=== PATIENT | male | born 1975 | race Caucasian/White ===

== ENCOUNTER 2016-12-21 02:28 | Emergency (ER) | payer BC, OTHER ==
[~2016-12-21] VITALS: Ht 182.9 cm; Wt 109.6 kg
[2016-12-21 02:35] VITALS: TEMP 35.8; Ht 182.9 cm; Wt 109.6 kg
--- NOTE | 2016-12-21 02:40 | EMERGENCY ROOM VISIT NOTE ---
History Report prepared by Zuleykaibjong: Riki Salazar Under the Supervision of: Dr. Areli Patterson D.O. First contact with patient: 02:31 Chief Complaint: ALCOHOL OVERDOSE Stated Complaint: ALCOHOL OVERDOSE History of Present Illness The patient is a 41 year old male who presents to the Emergency Room with complaints of an acute alcohol overdose that started prior to arrival. The patient came to the ED form the [facility], where he was attending a conference. 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 The patient was falling asleep at the bar at the [facility]. He was supposed to have sober friends come for him but his friends turned out to not be sober. The patient was covered in vomit upon arrival to the ED. He denies abdominal pain. The patient notes that his and daughter were in an argument today which pushed him over the edge. The patient denies any health problems. He denies other drug use. Complete history is limited secondary to alcohol intoxication. Source of History: patient, EMS Onset: [employer] Position: other (global) Quality: other (alcohol overdose) Timing: other (acute) Associated Symptoms: + vomiting, No abdominal pain Review of Systems ROS is limited secondary to alcohol intoxication. Past Medical & Surgical Medical Problems: (1) No known health problems Family History Patient reports no known family medical history. Social History Alcohol Use: occasionally Marital Status: Housing Status: lives with family Occupation Status: employed Current/Historical Medications No Active Prescriptions or Reported Meds Allergies Coded Allergies: No Known Allergies (Unverified , 12/21/16) Physical Exam Vital Signs Date Time Temp Pulse Resp B/P Pulse Ox O2 Delivery O2 Flow Rate FiO2 12/21/16 06:05 46 16 119/67 97 12/21/16 04:09 60 18 113/66 92 Room Air 12/21/16 02:36 63 12/21/16 02:35 35.8 45 18 134/89 96 Room Air Physical Exam HEENT: Head - normocephalic and atraumatic Pupils are equal, round, and reactive to light. Extraocular eye muscles are intact, and sclera are anicteric. Nose - moist nasal mucosa without discharge. Mouth - moist buccal mucosa. Oropharynx is nonerythematous and there is no tonsillar exudate or edema noted. Neck: Supple; no JVD, nuchal rigidity, cervical lymphadenopathy, or auscultated bruits. Heart: Regular rate and rhythm. There is a normal S1 and S2 with no murmurs, clicks, or gallops appreciated. Lungs: Clear to auscultation bilaterally with no wheezes, rales, or rhonchi. Abdomen: Soft, completely nontender, nondistended, with good bowel sounds. There are no palpable pulsatile masses or hepatosplenomegaly. There is no guarding, rigidity, or rebound noted. Extremities: No evidence of cyanosis, clubbing, or edema. There are easily palpable peripheral pulses. Skin: warm and dry with good turgor and no rashes. Medical Decision & Procedures Laboratory Results 12/21/16 02:39 Test 12/21/16 02:39 Anion Gap 11.0 mmol/L (3-11) Est Creatinine Clear Calc Drug Dose 126.9 ml/min Estimated GFR () 110.5 Estimated GFR (Non- 95.4 BUN/Creatinine Ratio 8.8 (10-20) Calcium Level 8.1 mg/dl (8.5-10.1) Ethyl Alcohol mg/dL 208.0 mg/dl (0-3) Laboratory results per my review. ED Course 0232: Past medical records reviewed. The patient was evaluated in room B11b. A complete history and physical exam was performed. Laboratory studies were drawn as above. The patient was placed in the prone position to avoid aspiration. He was observing the manager monitoring and pulse oximeter. 0405: The patient is sleeping at this time. He had vomited once. 0600: Discussed the discharge instructions with the patient. He verbalized understanding and agreement of the treatment plan. The patient is ready for discharge. Medical Decision The patient is a 41 year old male who presents to the ED with an alcohol overdose. Differential diagnosis includes alcohol overdose, drug intoxication, hypoglycemia, head injury. Laboratory interpretation: Alcohol 208, potassium 3, normal renal function, glucose 165. This is a 41-year-old male patient who presents to the emergency department after drinking too much alcohol. He was told that his potassium was low and that he should increase his intake of foods that are high in potassium. I've encouraged him to avoid such excessive alcohol use in the future. He should keep himself well-hydrated today. The patient had an elevated blood sugar here in the ER. I've asked him to follow-up with his PCP with regards to a fasting blood sugar. Impression Primary Impression: Alcohol overdose Additional Impressions: Hypokalemia Hyperglycemia Scribe Attestation The scribe's documentation has been prepared under my direction and personally reviewed by me in its entirety. I confirm that the note above accurately reflects all work, treatment, procedures, and medical decision making performed by me. Departure Information Dispostion Home / Self-Care Prescriptions No Active Prescriptions or Reported Meds Forms HOME CARE DOCUMENTATION FORM, IMPORTANT VISIT INFORMATION Patient Instructions ED Overdose Alcohol, Hyperglycemia, Hypokalemia [place], [facility] Additional Instructions Rest. Take plenty of clear liquids Take a bland diet. Avoid such excessive alcohol use in the future. Take foods high in potassium Follow up with your PCP for a fasting blood sugar. Problem Qualifiers
[2016-12-21 03:11] LABS: BUN/CREATININE RATIO 8.8 (10-20); CALCIUM 8.1 mg/dl (8.5-10.1); CREATININE 0.98 mg/dl (0.60-1.40)
[2016-12-21 06:05] VITALS: BP 119/67; PULSE 46; O2SAT 97
== END 2016-12-21 06:07 | disposition home or self-care (01) ==
LOC: EDBD 02:28 → C.EDB 02:29
DX: T51.0X1A Toxic effect of ethanol, accidental (unintentional), initial encounter (principal); X58.XXXA Exposure to other specified factors, initial encounter; Y92.511 Restaurant or cafe as the place of occurrence of the external cause; E87.6 Hypokalemia; R73.9 Hyperglycemia, unspecified